=== PATIENT | male | born 1960 | race Caucasian/White ===

== ENCOUNTER 2021-08-17 12:42 | Outpatient (CLI) | payer BC ==
[~2021-08-17] VITALS: Ht 182.9 cm; Wt 113.4 kg
[2021-08-17] MEDS ORDERED: CYMBALTA 30MG30 MG PO (16:38)
[2021-08-17] MEDS ORDERED: AMOXICILLIN875 MG (16:40)
[2021-08-17 16:50] VITALS: BP 146/78; PULSE 78; TEMP 98.2
== END 2021-08-17 17:37 ==
LOC: COL.RAD 12:42 → EUO 12:42 → COL.RAD 13:30
DX: K04.7 Periapical abscess without sinus (principal); R59.0 Localized enlarged lymph nodes
CPT/HCPCS: Q9967